=== PATIENT | male | born 1955 | race Caucasian/White ===

== ENCOUNTER 2017-03-24 11:01 | Emergency (ER) | payer OTHER ==
[~2017-03-24] VITALS: Ht 182.9 cm; Wt 108.7 kg
[~2017-03-24 11:01] MED LIST: COUMADIN,JANTOVE6 MG PO; TOPROL XL100 MG PO; WELLBUTRIN
[2017-03-24] MEDS ORDERED: XARELTO20 MG PO (11:52)
[2017-03-24] MEDS ORDERED: METOPROLOL SUC100 MG PO (11:53)
[2017-03-24] MEDS ORDERED: ATORVASTATIN CA20 MG PO (11:53)
[2017-03-24 12:17] LABS: CHLORIDE 106 mEq/L (99-109); POTASSIUM 5.5 mEq/L (3.7-5.4); SODIUM 140 mEq/L (136-147)
[2017-03-24 12:18] LABS: GLUCOSE 105 mg/dL (70-99)
[2017-03-24 12:20] LABS: ANION GAP 10 MEQ/L (2-14)
[2017-03-24 12:22] LABS: GFR ESTIMATE (CALCULATED) > 59 mL/min/
[2017-03-24 12:23] LABS: UREA NITROGEN (BUN) 16 mg/dL (9-23)
[2017-03-24 12:27] LABS: HEMATOCRIT 49.4 % (38.0-50.0); MCH 30.1 PG (29.0-34.0); MCV 88.5 FL (86-99); MEAN PLAT.VOLUME 8.9 uM^3 (9.0-12.4); PLATELET COUNT 182 K/uL (156-360); RBC DIS.WIDTH-CV 11.9 % (11.8-14.6); RBC DIS.WIDTH-SD 38.4 % (39-53); RED BLOOD COUNT 5.58 M/uL (4.00-5.50); WHITE BLOOD COUNT 5.5 K/uL (4.1-10.2)
[2017-03-24 13:09] LABS: TROP-I INTERPRETATION NEGATIVE; TROPONIN-I < 0.01 ng/mL (0.0-0.30)
[2017-03-24] MEDS ORDERED: ANTIVERT25 MG PO (13:33)
[2017-03-24 13:46] VITALS: BP 131/94
== END 2017-03-24 13:56 | disposition home or self-care (01) ==
LOC: EME 11:01
PROVIDERS: Emergency Medicine
DX: R42 Dizziness and giddiness (principal); I48.91 Unspecified atrial fibrillation; Z91.14 Patient's other noncompliance with medication regimen; Z79.01 Long term (current) use of anticoagulants; R06.02 Shortness of breath
CPT/HCPCS: 70450; 71020; 80048; 84484; 85027; 93005; 99281; 99285; J7030

== ENCOUNTER 2017-04-07 06:53 | Emergency (ER) | payer OTHER ==
[~2017-04-07] VITALS: Ht 180.3 cm; Wt 106.0 kg
[~2017-04-07 06:53] MED LIST changes: +ANTIVERT25 MG PO; +ATORVASTATIN CA20 MG PO; +METOPROLOL SUC100 MG PO; +XARELTO20 MG PO
[2017-04-07 08:04] LABS: BASOPHIL COUNT 0.1 K/uL (0-0.1); EOSINOPHIL (%) 2.8 % (0-5); EOSINOPHIL COUNT 0.2 K/uL (0-0.3); HEMATOCRIT 50.5 % (38.0-50.0); IMMATURE GRANULOCYTE (%) 0.5 % (0.0-0.7); INSTRUMENT ABS NEUTROPHIL CT 3.4 K/uL; LYMPHOCYTE COUNT 1.3 K/uL (1.0-2.8); MCH 30.1 PG (29.0-34.0); MCHC 33.3 G/DL (30.0-36.0); MCV 90.3 FL (86-99); MEAN PLAT.VOLUME 9.1 uM^3 (9.0-12.4); MONOCYTE (%) 11.7 % (3-12); MONOCYTE COUNT 0.7 K/uL (0-0.8); NEUTROPHIL (%) 60.4 % (45-76); NEUTROPHIL COUNT 3.4 K/uL (1.8-6.4); PLATELET COUNT 170 K/uL (156-360); RBC DIS.WIDTH-CV 12.1 % (11.8-14.6); RBC DIS.WIDTH-SD 39.9 % (39-53); RED BLOOD COUNT 5.59 M/uL (4.00-5.50); WHITE BLOOD COUNT 5.6 K/uL (4.1-10.2)
[2017-04-07 08:15] LABS: D-DIMER ELISA 0.33 mg/L FEU (< 0.57)
[2017-04-07 08:34] LABS: ANION GAP 8 MEQ/L (2-14); CHLORIDE 106 MEQ/L (99-109); POTASSIUM 4.3 MEQ/L (3.7-5.4); SAMPLE HEMOLYSIS CHECK 1; SAMPLE ICTERIC CHECK 0; SAMPLE LIPEMIA CHECK 0; SODIUM 137 MEQ/L (136-147)
[2017-04-07 08:40] LABS: GFR ESTIMATE (CALCULATED) > 59 mL/min/; GLUCOSE 117 mg/dL (70-99); UREA NITROGEN (BUN) 14 mg/dL (9-23)
[2017-04-07 10:53] VITALS: BP 112/72
== END 2017-04-07 11:08 | disposition home or self-care (01) ==
LOC: EME 06:53
PROVIDERS: Emergency Medicine
DX: R42 Dizziness and giddiness (principal); Z91.14 Patient's other noncompliance with medication regimen; I48.91 Unspecified atrial fibrillation; Z79.01 Long term (current) use of anticoagulants; I45.10 Unspecified right bundle-branch block
CPT/HCPCS: 70450; 70496; 70498; 80048; 85025; 85379; 93005; 99281; 99284; J7030

== ENCOUNTER 2018-03-16 15:18 | Emergency (ER) | payer OTHER ==
[~2018-03-16] VITALS: Ht 182.9 cm; Wt 104.5 kg
[2018-03-16 16:50] VITALS: BP 156/97
== END 2018-03-16 17:09 | disposition home or self-care (01) ==
LOC: EME 15:18 → RME 15:18
DX: S01.01XA Laceration without foreign body of scalp, initial encounter (principal); W22.8XXA Striking against or struck by other objects, initial encounter
CPT/HCPCS: 99281; 99283